=== PATIENT | male | born 1995 | race Caucasian/White ===

== ENCOUNTER 2017-10-28 10:19 | Emergency (ER) | payer OTHER ==
[~2017-10-28] VITALS: Ht 177.8 cm; Wt 113.4 kg
[~2017-10-28 10:19] MED LIST: AMOXICILLIN500 MG PO; ATIVAN1 MG PO; CITALOPRAM HBR40 MG PO; COUGH SYRUP118 ML PO; IBUPROFEN600 MG PO; PREDNISONE20 MG PO; PROVENTIL HFA6.7 GM INH; RISPERIDONE0.25 MG PO; RISPERIDONE0.5 MG PO; TESSALON PERLE100 MG PO
[2017-10-28] MEDS ORDERED: ZITHROMAX250 MG PO (13:14)
[2017-10-28] MEDS ORDERED: VENTOLIN HFA18 GM INH (13:14)
== END 2017-10-28 13:27 | disposition home or self-care (01) ==
LOC: ED 10:19
DX: J18.9 Pneumonia, unspecified organism (principal); F41.0 Panic disorder [episodic paroxysmal anxiety]; F32.9 Major depressive disorder, single episode, unspecified; Z79.899 Other long term (current) drug therapy
CPT/HCPCS: 71046; 80053; 83605; 85025; 94640; 99283; J7512

== ENCOUNTER 2020-09-04 23:41 | Emergency (ER) | payer OTHER ==
[~2020-09-04] VITALS: Ht 177.8 cm; Wt 146.8 kg
[~2020-09-04 23:41] MED LIST changes: +LORAZEPAM1 MG PO; +VENTOLIN HFA18 GM INH; +ZITHROMAX250 MG PO
--- OUTSIDE RECORDS SUMMARY | 2020-09-04 23:44 | XMS ---
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 Guidelines Source: [employer] [facility] [place] Guidelines Date: 02/23/2020 Care Coordination: Member is currently enrolled in Mental Health Services through [employer]. If services are needed through [employer] please call: Ifrah [phone] [place]; [phone] Crisis [phone] Care History Medical/Surgical 01/17/2019 [facility] CASE MANAGEMENT REFERRAL MADE- PATIENT HAS [facility] AND NO PCP. E.D. VISIT COUNT (12 MO.) 1 [facility] TOTAL 1 NOTE: Visits indicate total known visits. ED/UCC VISIT TRACKING (12 MO.) 09/04/2020 23:42 [facility] [place] TYPE: Emergency COMPLAINT: - CHEST STOMACH PAIN INPATIENT VISIT TRACKING (12 MO.) No inpatient visits to display in this time frame [email or web address]
[2020-09-05] MEDS ORDERED: PROTONIX40 MG PO (01:07)
--- NOTE | 2020-09-05 23:58 | EKG ---
[facility] [address] [facility] [place] [address] Signed Normal sinus rhythm Normal ECG No previous ECGs available Confirmed by LYNDA CARLTON MD ([id number]) on 09/05/2020 11:58:44 PM Electronically Signed By: LYNDA CARLTON MD 09/05/20 2358 PATIENT NAME: SHAGUFTA SAENZ Electrocardiogram DATE OF : [birth year] PHYSICIAN: LYNDA CARLTON MD REPORT #: [id number] REPORT IS CONFIDENTIAL AND NOT TO BE RELEASED WITHOUT AUTHORIZATION
== END 2020-09-05 01:12 | disposition home or self-care (01) ==
LOC: ED 23:41
DX: R10.12 Left upper quadrant pain (principal); R10.13 Epigastric pain; F32.9 Major depressive disorder, single episode, unspecified; Z79.899 Other long term (current) drug therapy
CPT/HCPCS: 80053; 81001; 83690; 85025; 93005; 93010; 99284-25

== ENCOUNTER 2021-12-11 13:06 | Emergency (ER) | payer OTHER ==
[~2021-12-11] VITALS: Ht 177.8 cm; Wt 138.0 kg
[~2021-12-11 13:06] MED LIST changes: +PROTONIX40 MG PO
--- OUTSIDE RECORDS SUMMARY | 2021-12-11 13:10 | XMS ---
PreManage Notification: SHAGUFTA SAENZ Security Gemologist Events No recent Security Events currently on file CRITERIA MET - PDMP - Group Notification CARE PROVIDERS SILAS RAMOS Physician Counter Supervisor 09/06/2020-Current PHONE: [phone] Care Guidelines exist for the following facilities: [facility] ( 02/23/2020 ) Care History Medical/Surgical 01/17/2019 [facility] EOIPA CASE MANAGEMENT REFERRAL MADE- PATIENT HAS E[facility] AND NO PCP. E.D. VISIT COUNT (12 MO.) [address] [place] [address] TOTAL 1 NOTE: Visits indicate total known visits. ED/UCC VISIT TRACKING (12 MO.) 12/11/2021 13:07 [facility] [place] TYPE: Emergency COMPLAINT: - MEDICAL CLEARANCE INPATIENT VISIT TRACKING (12 MO.) No inpatient visits to display in this time frame [id number]
== END 2021-12-11 21:00 | disposition home or self-care (01) ==
LOC: ED 13:06
DX: R45.851 Suicidal ideations (principal); F41.9 Anxiety disorder, unspecified; Z79.899 Other long term (current) drug therapy; F32.A Depression, unspecified
CPT/HCPCS: 36415; 80053; 81001; 84443; 85025; 99285; G0480

== ENCOUNTER 2021-12-18 22:01 | Emergency (ER) | payer OTHER ==
[~2021-12-18] VITALS: Ht 177.8 cm; Wt 142.9 kg
--- OUTSIDE RECORDS SUMMARY | 2021-12-18 22:02 | XMS ---
PreManage Notification: SHAGUFTA SAENZ Security Public Interviewer Events No recent Security Events currently on file CRITERIA MET - [facility] - 2 Visits in 30 Days - PDMP - Group Notification CARE PROVIDERS SILAS RAMOS Physician Phy Therapist 09/06/2020-Current PHONE: [phone] Care Guidelines exist for the following facilities: [facility] ( 02/23/2020 ) Care History Medical/Surgical 01/17/2019 [facility] EOIPA CASE MANAGEMENT REFERRAL MADE- PATIENT HAS [facility] AND NO PCP. E.D. VISIT COUNT (12 MO.) 2 [facility] TOTAL 2 NOTE: Visits indicate total known visits. ED/UCC VISIT TRACKING (12 MO.) 12/18/2021 22:01 [facility] [place] TYPE: Emergency COMPLAINT: - RECTAL BLEEDING 12/11/2021 13:07 [facility] [place] TYPE: Emergency COMPLAINT: - MEDICAL CLEARANCE DIAGNOSES: - Other usp (current) drug therapy - Anxiety disorder, unspecified - Suicidal ideations - DEPRESSION, UNSPECIFIED INPATIENT VISIT TRACKING (12 MO.) No inpatient visits to display in this time frame [email or web address]
== END 2021-12-18 23:38 | disposition home or self-care (01) ==
LOC: ED 22:01
DX: K62.5 Hemorrhage of anus and rectum (principal); R10.13 Epigastric pain; Z79.899 Other long term (current) drug therapy
CPT/HCPCS: 36415; 80053; 83690; 85025; 96374; 96375; 99284-25; J1170; J2405; J7030

== ENCOUNTER 2022-06-07 11:03 | Emergency (ER) | payer OTHER ==
[~2022-06-07] VITALS: Ht 177.8 cm; Wt 121.2 kg
--- NOTE | ~2022-06-07 | EKG ---
[facility] [address] [facility] [place], [place] [address] Draft EK completed, results pending confirmation PATIENT NAME: LETTYSHAGUFTA SANCHEZ Electrocardiogram DATE OF : [birth year] PHYSICIAN: PRELIMINARY REPORT #: [id number] REPORT IS CONFIDENTIAL AND NOT TO BE RELEASED WITHOUT AUTHORIZATION
[~2022-06-07 11:03] MED LIST changes: +OSTERA TABLET1 EACH PO; +PROTONIX40 M1 PO
--- OUTSIDE RECORDS SUMMARY | 2022-06-07 11:05 | XMS ---
PreManage Notification: SHAGUFTA SAENZ Security Director Case Management Events No recent Security Events currently on file CRITERIA MET - Group Notification - PDMP CARE PROVIDERS SILAS RAMOS Physician Wheel Fitter 09/06/2020-Current PHONE: [phone] Care Guidelines exist for the following facilities: [facility] ( 02/23/2020 ) Care History Medical/Surgical 01/17/2019 [facility] EOIPA CASE MANAGEMENT REFERRAL MADE- PATIENT HAS E[facility] AND NO PCP. E.D. VISIT COUNT (12 MO.) 3 [facility] TOTAL 3 NOTE: Visits indicate total known visits. 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
[2022-06-07] MEDS ORDERED: VITAMIN D350 MCG PO (11:45)
== END 2022-06-07 12:39 | disposition home or self-care (01) ==
LOC: ED 11:03
DX: R55 Syncope and collapse (principal)
CPT/HCPCS: 93005; 93010; 99284-25

== ENCOUNTER 2022-06-14 06:09 | Day surgery (SDC) | payer OTHER ==
[~2022-06-14] VITALS: Ht 177.8 cm; Wt 121.4 kg
[~2022-06-14 06:09] MED LIST changes: +VITAMIN D350 MCG PO; +ZITHROMAX250 MG; +ZOLOFT25 MG PO
--- NOTE | 2022-06-14 09:21 | OR ---
[facility] [address] [place], [place] [address] Signed DATE OF OPERATION: 06/14/2022 SURGEON: Kateryna Bowen MD PREOPERATIVE DIAGNOSES: 1. Epigastric abdominal pain. 2. Acid reflux. 3. Chronic alternating constipation and diarrhea. 4. Chronic intermittent bloody stool. POSTOPERATIVE DIAGNOSES: 1. Minimal diffuse gastritis. 2. Minimal internal hemorrhoids. PROCEDURES: 1. EGD with CLOtest and biopsies of the duodenum, pyloric bulb and antrum. 2. Colonoscopy with random cold biopsies of the colon and rectum. ESTIMATED BLOOD LOSS: None. INDICATIONS: Natalio is a 27-year-old obese gentleman with rather significant obsessive-compulsive disorder. He was unable to finish high school. He had been living with his mother. I had helped his mother with her inflammatory breast cancer. Unfortunately, she has . He has remained here in [place] in the apartment by himself. He does have family over in the [place] area. He does not drive. He has been working along with his primary care provider. He has been having trouble with epigastric abdominal pain and acid reflux. He said the Protonix has helped. He also mentions alternating constipation and diarrhea over the years. He said in the last couple of years he has had several episodes where there has been blood associated with his stool. He finally went to the emergency room in December of 2021 for blood in the stool. Consequently, he has been asked to see me for both upper and lower endoscopy. He is not aware of any colon cancer or colon polyps in the family. There was no inflammatory bowel disease in his family. He did recall a urethral dilation when he awoke and was quite animated. He may have had a paradoxical reaction to the medication. In addition, he has a very full heavy round face, neck, chest and abdomen. He also has a full black. He has a very large tongue. He did require monitored anesthesia care. That proved to be a martínez decision as he took a large amount of propofol and he required almost constant airway management. In the office, I gave him pamphlets on both upper and lower endoscopy. We Electronically Signed By: KATERYNA BOWEN MD 06/14/22 0921 PATIENT NAME: NATALIO SAENZ OPERATIVE REPORT DATE OF : [birth year] REPORT #: [id number] PHYSICIAN: KATERYNA BOWEN MD PCP: TEMITOPE CARLSON PA-C REPORT IS CONFIDENTIAL AND NOT TO BE RELEASED WITHOUT AUTHORIZATION [facility] [address] [place], [place] [address] Signed had reviewed the nature of the two tests. There is risk including, but not limited to gas bloating, crampy abdominal pain, bleeding, perforation requiring surgery, and missed diagnosis. He had expressed understanding and wished to proceed. PROCEDURE NOTE: Natalio was taken into our endoscopy suite and placed in the supine semi-recumbent position. A bite block was utilized for the case. He was given monitored anesthesia care to include propofol per our nurse community outreach director. The adult gastroscope was introduced and advanced out into the 2nd portion of the duodenum without difficulty. We went ahead and took a random biopsy of the duodenum and pyloric channel due to his history of diarrhea. He appeared to have just a little bit of irritation in the pyloric channel and very mild diffuse inflammation in the stomach. I suspect that is better with his Protonix. We took an additional biopsy out of the antrum for CLOtest. There were no ulcers. Upon retroflexion of the scope, there was no evidence of a hiatal hernia. The scope was withdrawn up through the area of the GE junction, which was compliant without stricture. There was no gastric or esophageal varices. His Z-line is more or less intact. No Hunt's mucosa. No distal esophagitis. The middle and upper esophagus were unremarkable. After this, the gas was suctioned out and the gastroscope removed. Natalio tolerated his procedure quite well. Natalio was then rotated into the left lateral decubitus position. He was maintained on propofol per our nurse community outreach director. A digital rectal exam was performed. This was unremarkable. He had good sphincter tone. No obvious external hemorrhoids. No masses. The adult colonoscope was introduced and advanced all the way around into the cecum under direct visualization of the camera without difficulty. He had a couple areas of particulate liquid stool that I could not quite suction out completely. We could see the appendiceal orifice and the ileocecal valve. We were unable to turn the scope into the terminal ileum. We took random biopsies throughout the colon and rectum for pathologic review. We used cold biopsy forceps. There was no diverticulosis. No polyps. The scope had been retroflexed in the rectum. He does have minimal internal hemorrhoid columns. He has one hemorrhoid column that I think is the source of his intermittent rectal bleeding. After this, the gas was suctioned out and the colonoscope removed. Natalio tolerated the procedure quite well. RECOMMENDATIONS: I will see Natalio back in my office in 7 to 14 days to review his results. Kateryna Bowen MD Electronically Signed By: KATERYNA BOWEN MD 06/14/22 0921 PATIENT NAME: NATALIO SAENZ OPERATIVE REPORT DATE OF : [birth year] REPORT #: [id number] PHYSICIAN: KATERYNA BOWEN MD PCP: TEMITOPE CARLSON PA-C REPORT IS CONFIDENTIAL AND NOT TO BE RELEASED WITHOUT AUTHORIZATION [address] [place], [place] [address] Signed ALB/MODL /[id number] cc: MD Temitope Romano PA-C Copies: KATERYNA BOWEN MD ~ Electronically Signed By: KATERYNA BOWEN MD 06/14/22 0921 PATIENT NAME: NATALIO SAENZ OPERATIVE REPORT DATE OF : [birth year] REPORT #: [id number] PHYSICIAN: KATERYNA BOWEN MD PCP: TEMITOPE CARLSON PA-C REPORT IS CONFIDENTIAL AND NOT TO BE RELEASED WITHOUT AUTHORIZATION
--- NOTE | 2022-06-16 17:10 | PATH ---
[facility] [address] [place], [place] [address] Signed SPECIMEN(S): A DUODENAL BIOPSY SPECIMEN(S): B DUODENAL BULB BIOPSY SPECIMEN(S): C ANTRUM/PYLORUS BIOPSY SPECIMEN(S): D DESCENDING/LEFT COLON BIOPSY SPECIMEN(S): E TRANSVERSE COLON BIOPSY SPECIMEN(S): F ASCENDING/RIGHT COLON BIOPSY SPECIMEN(S): G SIGMOID COLON BIOPSY SPECIMEN(S): H RECTAL BIOPSY SPECIMEN SOURCE: A. DUODENAL BIOPSY B. DUODENAL BULB BIOPSY C. ANTRUM/PYLORUS BIOPSY D. DESCENDING/LEFT COLON BIOPSY E. TRANSVERSE COLON BIOPSY F. ASCENDING/RIGHT COLON BIOPSY G. SIGMOID COLON BIOPSY H. RECTAL BIOPSY CLINICAL HISTORY: Blood in stool, constipation, diarrhea, acid reflux, epigastric pain. Postop: Mild gastritis, internal hemorrhoids. FINAL PATHOLOGIC DIAGNOSIS: A. Duodenal biopsy: - Benign duodenal mucosa, negative for specific diagnostic abnormality. B. Duodenal bulb biopsy: - Benign duodenal mucosa, negative for specific diagnostic abnormality. C. Antrum / pylorus biopsy: - Benign gastric-type mucosa with focal slight chronic inflammation. - Negative for atypical features. - Negative for evidence of Helicobacter organisms on routine HE stained sections. D. Descending / left colon biopsy: - Benign colonic mucosa, negative for pathologic inflammation. E. Transverse colon biopsy: - Benign colonic mucosa, negative for specific diagnostic abnormality. F. Ascending / right colon biopsy: - Benign colonic mucosa, negative for specific diagnostic abnormality. G. Sigmoid colon biopsy: - Benign colonic mucosa, negative for pathologic inflammation. PATIENT NAME: NATALIO VALERO PATHOLOGY DATE OF : [birth year] REPORT #: [id number] PHYSICIAN: CHRIS HOLLAND PCP: JOANA CARLSON PA-C REPORT IS CONFIDENTIAL AND NOT TO BE RELEASED WITHOUT AUTHORIZATION [facility] [address] [place], [place] [address] Signed H. Rectal biopsy: - Benign colonic mucosa, negative for pathologic inflammation. JVR:[facility]:C2NR MICROSCOPIC EXAMINATION: Histologic sections of all submitted blocks are examined by light microscopy. These findings, together with the gross examination, support the pathologic diagnosis. GROSS DESCRIPTION: Eight specimens are received in eight containers, labeled "Natalio Valero." A. The specimen, labeled "Natalio Valero, #1," and designated on the requisition "duodenum biopsy," is received in formalin and consists of one barriga soft tissue fragment that measures 0.3 cm in greatest dimension. The specimen is entirely submitted in cassette (A1). B. The specimen, labeled "Natalio Valero, #2," and designated on the requisition "duodenal bulb biopsy," is received in formalin and consists of one barriga soft tissue fragment that measures 0.4 cm in greatest dimension. The specimen is entirely submitted in cassette (B1). C. The specimen, labeled "Natalio Valero, #3," and designated on the requisition "antrum/pylorus biopsy," is received in formalin and consists of one barriga soft tissue fragment that measures 0.3 cm in greatest dimension. The specimen is entirely submitted in cassette (C1). D. The specimen, labeled "Natalio Valero, #4," and designated on the requisition "descending/left colon biopsy," is received in formalin and consists of one barriga soft tissue fragment that measures 0.3 cm in greatest dimension. The specimen is entirely submitted in cassette (D1). E. The specimen, labeled "Natalio Valero, #5, per the requisition transverse colon biopsy," is received in formalin and consists of one barriga soft tissue fragment that measures 0.4 cm in greatest dimension. The specimen is entirely submitted in cassette (E1). F. The specimen, labeled "Natalio Valero, #6," and designated on the requisition "ascending/right colon biopsy," is received in formalin and consists of two barriga soft tissue fragment(s) that measure 0.3 and 0.5 cm in greatest dimension. The specimen is entirely submitted in cassette (F1). G. The specimen, labeled "Natalio Valero, #7," and designated on the requisition "sigmoid colon biopsy," is received in formalin and consists of one barriga soft tissue fragment that measures 0.4 cm in greatest dimension. The specimen is entirely submitted in cassette (G1). PATIENT NAME: NATALIO VALERO PATHOLOGY DATE OF : [birth year] REPORT #: [id number] PHYSICIAN: CHRIS HOLLAND PCP: JOANA CARLSON PA-C REPORT IS CONFIDENTIAL AND NOT TO BE RELEASED WITHOUT AUTHORIZATION [address] [address] Signed H. The specimen, labeled "Natalio Valero, #8," and designated on the requisition "rectal biopsy," is received in formalin and consists of one barriga soft tissue fragment that measures 0.4 cm in greatest dimension. The specimen is entirely submitted in cassette (A1). FB (under the direct supervision of a pathologist) The Gross Description was prepared using a voice recognition system. The report was reviewed for accuracy; however, sound-alike word errors, addition and/or deletions may occur. If there is any question about this report, please contact Client Services. PERFORMING LABORATORY: The technical component was performed by [facility], [address] [place] [id number] (CLIA# [id number]). Professional interpretation was performed by [facility], [address] [place] [id number] (CLIA#: [id number]). Diagnostician: Amos Tamayo MD Pathologist Electronically Signed 06/16/2022 Copies: ~ PATIENT NAME: NATALIO VALERO PATHOLOGY DATE OF : [birth year] REPORT #: [id number] PHYSICIAN: [employer] AMALIA PCP: JOANA CARLSON PA-C REPORT IS CONFIDENTIAL AND NOT TO BE RELEASED WITHOUT AUTHORIZATION
== END 2022-06-14 08:35 | disposition home or self-care (01) ==
LOC: DS 06:09
PROVIDERS: ATTEND Colon & Rectal Surgery
PROC: 0DB68ZX Excision of Stomach, Via Natural or Artificial Opening Endoscopic, Diagnostic (ICD-10-PCS; 2022-06-14)
PROC: 0DBK8ZX Excision of Ascending Colon, Via Natural or Artificial Opening Endoscopic, Diagnostic (ICD-10-PCS; 2022-06-14)
PROC: 0DBL8ZX Excision of Transverse Colon, Via Natural or Artificial Opening Endoscopic, Diagnostic (ICD-10-PCS; 2022-06-14)
PROC: 0DBN8ZX Excision of Sigmoid Colon, Via Natural or Artificial Opening Endoscopic, Diagnostic (ICD-10-PCS; 2022-06-14)
PROC: 0DBP8ZX Excision of Rectum, Via Natural or Artificial Opening Endoscopic, Diagnostic (ICD-10-PCS; 2022-06-14)
PROC: 0DBM8ZX Excision of Descending Colon, Via Natural or Artificial Opening Endoscopic, Diagnostic (ICD-10-PCS; 2022-06-14)
PROC: 0DB98ZX Excision of Duodenum, Via Natural or Artificial Opening Endoscopic, Diagnostic (ICD-10-PCS; principal; 2022-06-14 07:30)
PROC: 0DB78ZX Excision of Stomach, Pylorus, Via Natural or Artificial Opening Endoscopic, Diagnostic (ICD-10-PCS; 2022-06-14 07:30)
DX: K29.50 Unspecified chronic gastritis without bleeding (principal); K21.9 Gastro-esophageal reflux disease without esophagitis; K59.09 Other constipation; K52.9 Noninfective gastroenteritis and colitis, unspecified; K64.8 Other hemorrhoids; K62.5 Hemorrhage of anus and rectum; E66.9 Obesity, unspecified; Z68.37 Body mass index [BMI] 37.0-37.9, adult; F42.9 Obsessive-compulsive disorder, unspecified
CPT/HCPCS: 00731; 36415; 87077; J2704; J7121

== ENCOUNTER 2022-07-02 21:09 | Emergency (ER) | payer OTHER ==
[~2022-07-02] VITALS: Ht 177.8 cm; Wt 121.2 kg
--- OUTSIDE RECORDS SUMMARY | 2022-07-02 21:12 | XMS ---
PreManage Notification: SHAGUFTA SAENZ Security Peel Oven Tender Events No recent Security Events currently on file CRITERIA MET - Group Notification - PDMP - [facility] - 2 Visits in 30 Days CARE PROVIDERS SILAS RAMOS Physician Four H Agent 09/06/2020-Current PHONE: [phone] Care Guidelines exist for the following facilities: [facility] ( 02/23/2020 ) Care History Medical/Surgical 01/17/2019 [facility] CASE MANAGEMENT REFERRAL MADE- PATIENT HAS [facility] AND NO PCP. E.D. VISIT COUNT (12 MO[address] 4 [facility] TOTAL 4 NOTE: Visits indicate total known visits. ED/UCC VISIT TRACKING (12 MO.) 07/02/2022 21:10 [facility] [place] TYPE: Emergency COMPLAINT: - SUICIDAL THOUGHTS 06/07/2022 11:03 [facility] TYPE: Emergency COMPLAINT: - FAINT DIAGNOSES: - Syncope and collapse 12/18/2021 22:01 [facility] TYPE: Emergency COMPLAINT: - RECTAL BLEEDING DIAGNOSES: - Epigastric pain - Hemorrhage of anus and rectum - Other [facility] (current) drug therapy 12/11/2021 13:07 [facility] [place] TYPE: Emergency COMPLAINT: - MEDICAL CLEARANCE DIAGNOSES: - Suicidal ideations - Anxiety disorder, unspecified - DEPRESSION, UNSPECIFIED - Depression, unspecified - Other [facility] (current) drug therapy INPATIENT VISIT TRACKING (12 MO.) No inpatient visits to display in this time frame [id number]
[2022-07-02] MEDS ORDERED: HYDROXYZINE HCL25 MG PO (22:29)
== END 2022-07-02 23:21 | disposition home or self-care (01) ==
LOC: ED 21:09
DX: F41.9 Anxiety disorder, unspecified (principal); Z79.899 Other long term (current) drug therapy
CPT/HCPCS: 80053; 81001; 85025; 99283; G0480

== ENCOUNTER 2022-09-21 10:34 | Emergency (ER) | payer OTHER ==
[~2022-09-21] VITALS: Ht 177.8 cm; Wt 121.2 kg
[~2022-09-21 10:34] MED LIST changes: +HYDROXYZINE HCL25 MG PO
--- OUTSIDE RECORDS SUMMARY | 2022-09-21 10:36 | XMS ---
PreManage Notification: SHAGUFTA SAENZ Security Sponge Fisherman Events No recent Security Events currently on file CRITERIA MET - Group Notification - PDMP CARE PROVIDERS SILAS RAMOS Physician Nuclear Fuels Reclamation Engineer 09/06/2020-Current PHONE: [phone] Care Guidelines exist for the following facilities: [facility] ( 02/23/2020 ) Care History Medical/Surgical 01/17/2019 [facility] EOIPA CASE MANAGEMENT REFERRAL MADE- PATIENT HAS EOCCO AND NO PCP. E.D. VISIT COUNT (12 MO.) [address] [place] [address] TOTAL 5 NOTE: Visits indicate total known visits. ED/UCC VISIT TRACKING (12 MO.) 09/21/2022 10:35 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
[2022-09-21] MEDS ORDERED: PANTOPRAZOLE SO40 MG PO (15:29)
== END 2022-09-22 14:23 | disposition short-term general hospital (02) ==
LOC: ED 10:34
DX: F42.9 Obsessive-compulsive disorder, unspecified (principal); Z20.822 Contact with and (suspected) exposure to COVID-19
CPT/HCPCS: 36415; 80053; 84443; 85025; 87502; 99283; C9803; G0480; U0003

== ENCOUNTER 2022-10-10 02:16 | Emergency (ER) | payer OTHER ==
[~2022-10-10] VITALS: Ht 177.8 cm; Wt 121.2 kg
[~2022-10-10 02:16] MED LIST changes: +PANTOPRAZOLE SO40 MG PO
--- OUTSIDE RECORDS SUMMARY | 2022-10-10 02:18 | XMS ---
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 E.D. VISIT COUNT (12 MO.) 6 [facility] TOTAL 6 NOTE: Visits indicate total known visits. ED/UCC VISIT TRACKING (12 MO.) 10/10/2022 02:[address] [facility] TYPE: Emergency COMPLAINT: - PAIN, ANXIETY 09/21/2022 10:[address] 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 06/07/2022 11:03 [facility] [place] TYPE: Emergency COMPLAINT: - FAINT DIAGNOSES: - Syncope and collapse 12/18/2021 22:01 [facility] [place] TYPE: Emergency COMPLAINT: - RECTAL BLEEDING DIAGNOSES: - Epigastric pain - Hemorrhage of anus and rectum - Other 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
== END 2022-10-10 11:01 | disposition home or self-care (01) ==
LOC: ED 02:16
DX: F41.9 Anxiety disorder, unspecified (principal); F42.9 Obsessive-compulsive disorder, unspecified
CPT/HCPCS: 36415; 80053; 81003; 84443; 85025; 99283; G0480; U0003

== ENCOUNTER 2022-10-25 23:55 | Emergency (ER) | payer OTHER ==
[~2022-10-25] VITALS: Ht 177.8 cm; Wt 98.1 kg
--- OUTSIDE RECORDS SUMMARY | 2022-10-25 23:56 | XMS ---
PreManage Notification: SHAGUFTA SAENZ Security Sheet Catcher Events No recent Security Events currently on file CRITERIA MET - [facility] - 2 Visits in 30 Days - 6 ED Visits in 6 Months - Group Notification CARE PROVIDERS SILAS RAMOS Physician 09/06/2020-Current PHONE: [phone] Care Guidelines exist for the following facilities: [facility] ( 02/23/2020 ) Care History Medical/Surgical 01/17/2019 [facility] CASE MANAGEMENT REFERRAL MADE- PATIENT HAS EOCCO AND NO PCP. E.D. VISIT COUNT (12 MO.) [facility] Micki [address] TOTAL 9 NOTE: Visits indicate total known visits. ED/UCC VISIT TRACKING (12 MO.) 10/25/2022 23:[address] [facility] TYPE: Emergency COMPLAINT: - DEPRESSION 10/21/2022 13:16 [facility] TYPE: Emergency COMPLAINT: - suicidal DIAGNOSES: - suicidal - Suicidal ideations - SI 10/20/2022 22:26 [facility] COMPLAINT: - AMS DIAGNOSES: - Chest Pain - Acute upper respiratory infection, unspecified - Cough - AMS - Altered Mental Status 10/10/2022 02:17 [facility] [place] TYPE: Emergency COMPLAINT: - PAIN, ANXIETY DIAGNOSES: - Obsessive-compulsive disorder, unspecified - Anxiety disorder, unspecified 09/21/2022 10:35 [facility] [place] TYPE: Emergency COMPLAINT: - MEDICAL CLEARANCE DIAGNOSES: - Obsessive-compulsive disorder, unspecified - Contact with and (suspected) exposure to COVID-19 07/02/2022 21:10 [facility] [place] TYPE: Emergency COMPLAINT: - SUICIDAL THOUGHTS DIAGNOSES: - Anxiety disorder, unspecified - Other termite renewal inspector (current) drug therapy 06/07/2022 11:03 [facility] [place] TYPE: Emergency COMPLAINT: - FAINT DIAGNOSES: - Syncope and collapse 12/18/2021 22:01 [facility] [place] TYPE: Emergency COMPLAINT: - RECTAL BLEEDING DIAGNOSES: - Epigastric pain - Hemorrhage of anus and rectum - Other correction (current) drug therapy 12/11/2021 13:07 [facility] [place] TYPE: Emergency COMPLAINT: - MEDICAL CLEARANCE DIAGNOSES: - Suicidal ideations - Anxiety disorder, unspecified - DEPRESSION, UNSPECIFIED - Depression, unspecified - Other termite renewal inspector (current) drug 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
== END 2022-10-26 02:30 | disposition home or self-care (01) ==
LOC: ED 23:55
DX: F32.A Depression, unspecified (principal); F45.9 Somatoform disorder, unspecified
CPT/HCPCS: 99283

== ENCOUNTER 2022-10-29 23:39 | Emergency (ER) | payer OTHER ==
[~2022-10-29] VITALS: Ht 177.8 cm; Wt 97.6 kg
--- OUTSIDE RECORDS SUMMARY | 2022-10-29 23:42 | XMS ---
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 E.D. VISIT COUNT (12 MO.) [facility] Micki [address] TOTAL 10 NOTE: Visits indicate total known visits. ED/UCC VISIT TRACKING (12 MO.) 10/29/2022 23:[address] [facility] [place] TYPE: Emergency COMPLAINT: - FOUND DOWN AT HOME 10/25/2022 23:[address] [facility] [place] TYPE: Emergency COMPLAINT: - DEPRESSION DIAGNOSES: - Depression, unspecified - Somatoform disorder, unspecified 10/21/2022 13:16 [facility] TYPE: Emergency COMPLAINT: - suicidal DIAGNOSES: - SI - suicidal - Suicidal ideations 10/20/2022 22:26 [facility] TYPE: Emergency COMPLAINT: - AMS DIAGNOSES: - Altered Mental Status - Chest Pain - Acute upper respiratory infection, unspecified - Cough - AMS 10/10/2022 02:17 [facility] TYPE: Emergency COMPLAINT: - PAIN, ANXIETY DIAGNOSES: - Anxiety disorder, unspecified - Obsessive-compulsive disorder, unspecified 09/21/2022 10:35 [facility] TYPE: Emergency COMPLAINT: - MEDICAL CLEARANCE DIAGNOSES: - Contact with and (suspected) exposure to COVID-19 - Obsessive-compulsive disorder, unspecified 07/02/2022 21:10 [facility] [place] TYPE: Emergency COMPLAINT: - SUICIDAL THOUGHTS DIAGNOSES: - Other long-term (current) drug therapy - Anxiety disorder, unspecified 06/07/2022 11:03 [facility] [place] TYPE: Emergency COMPLAINT: - FAINT DIAGNOSES: - Syncope and collapse 12/18/2021 22:01 [facility] [place] TYPE: Emergency COMPLAINT: - RECTAL BLEEDING DIAGNOSES: - Other long-term (current) drug therapy - Epigastric pain - Hemorrhage of anus and rectum 12/11/2021 13:07 [facility] [place] TYPE: Emergency COMPLAINT: - MEDICAL CLEARANCE DIAGNOSES: - Other long-term (current) drug therapy - Suicidal ideations - Anxiety disorder, unspecified - DEPRESSION, UNSPECIFIED - Depression, unspecified INPATIENT VISIT TRACKING (12 MO.) No inpatient visits to display in this time frame [id number]
[2022-10-29] MEDS ORDERED: PANTOPRAZOLE SO40 MG PO (23:54)
[2022-10-29] MEDS ORDERED: SERTRALINE HCL50 MG PO (23:54)
[2022-10-29] MEDS ORDERED: LORAZEPAM1 MG PO (23:54)
== END 2022-10-30 01:55 | disposition home or self-care (01) ==
LOC: ED 23:39
DX: F45.0 Somatization disorder (principal); F32.A Depression, unspecified; F43.10 Post-traumatic stress disorder, unspecified; Z79.899 Other long term (current) drug therapy
CPT/HCPCS: 36415; 51798; 80053; 82553; 83735; 85025; 99284-25; G0480; J7030

== ENCOUNTER → 2022-11-10 | Emergency (ER) | payer OTHER ==
[~2022-11-10] VITALS: Ht 177.8 cm; Wt 97.6 kg
[~2022-11-10] MED LIST changes: +SERTRALINE HCL50 MG PO
--- OUTSIDE RECORDS SUMMARY | 2022-11-10 13:43 | XMS ---
PreManage Notification: SHAGUFTA SAENZ Security Ultrasound Tech Events No recent Security Events currently on file CRITERIA MET - [facility] - 2 Visits in 30 Days - 6 ED Visits in 6 Months - Group Notification CARE PROVIDERS SILAS RAMOS Physician 09/06/2020-Current PHONE: [phone] Care Guidelines exist for the following facilities: [facility] ( 02/23/2020 ) Care History Medical/Surgical 01/17/2019 [facility] EOIPA CASE MANAGEMENT REFERRAL MADE- PATIENT HAS EOCCO AND NO PCP. E.D. VISIT COUNT (12 MO.) [facility] TOTAL 11 NOTE: Visits indicate total known visits. ED/UCC VISIT TRACKING (12 MO.) 11/10/2022 13:39 [facility] [place] TYPE: Emergency COMPLAINT: - WEAKNESS 10/29/2022 23:40 [facility] [place] TYPE: Emergency COMPLAINT: - FOUND DOWN AT HOME DIAGNOSES: - Somatization disorder - Post-traumatic stress disorder, unspecified - Other [place] [facility] (current[facility] drug therapy - Anesthesia of skin - Depression, unspecified 10/25/2022 23:55 [facility] [place] TYPE: Emergency COMPLAINT: - DEPRESSION DIAGNOSES: - Depression, unspecified - Somatoform disorder, unspecified 10/21/2022 13:16 [facility] TYPE: Emergency COMPLAINT: - suicidal DIAGNOSES: - Suicidal ideations - SI - suicidal 10/20/2022 22:26 [facility] TYPE: Emergency COMPLAINT: - AMS DIAGNOSES: - Cough - AMS - Altered Mental Status - Chest Pain - Acute upper respiratory infection, unspecified 10/10/2022 02:17 [facility] [place] TYPE: Emergency COMPLAINT: - PAIN, ANXIETY DIAGNOSES: - Anxiety disorder, unspecified - Obsessive-compulsive disorder, unspecified 09/21/2022 10:35 [facility] [place] TYPE: Emergency COMPLAINT: - MEDICAL CLEARANCE DIAGNOSES: - Contact with and (suspected) exposure to COVID-19 - Obsessive-compulsive disorder, unspecified 07/02/2022 21:10 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) drug therapy - Anxiety disorder, unspecified 06/07/2022 11:03 [facility] [place] TYPE: Emergency COMPLAINT: - FAINT DIAGNOSES: - Syncope and collapse 12/18/2021 22:01 [facility] [place] TYPE: Emergency COMPLAINT: - RECTAL BLEEDING DIAGNOSES: - Hemorrhage of anus and rectum - Other terminal operator (current) drug therapy - Epigastric pain 12/11/2021 13:07 [facility] [place] TYPE: Emergency COMPLAINT: - MEDICAL CLEARANCE DIAGNOSES: - DEPRESSION, UNSPECIFIED - Depression, unspecified - Other [place] [facility] [place] (current) drug therapy - Suicidal ideations - Anxiety disorder, unspecified INPATIENT VISIT TRACKING (12 MO.) No inpatient visits to display in this time frame [email or web address]
== END ==
LOC: ED 13:39
DX: R29.818 Other symptoms and signs involving the nervous system (principal); Z79.899 Other long term (current) drug therapy
CPT/HCPCS: 36415; 80053; 81001; 82553; 84443; 85025; 87088; 99285; G0480; J7030

== ENCOUNTER 2022-11-17 14:22 | Emergency (ER) | payer OTHER ==
[~2022-11-17] VITALS: Ht 177.8 cm; Wt 97.6 kg
--- OUTSIDE RECORDS SUMMARY | 2022-11-17 14:23 | XMS ---
PreManage Notification: SHAGUFTA SAENZ Security Index Editor Events No recent Security Events currently on file CRITERIA MET - Group Notification - 6 ED Visits in 6 Months - [facility] - 3 Facilities in 90 Days - [facility] - 2 Visits in 30 Days CARE PROVIDERS SILAS RAMOS Physician 09/06/2020-Current PHONE: [phone] Care Guidelines exist for the following facilities: [facility] ( 02/23/2020 ) Care History Medical/Surgical 01/17/2019 [facility] EOIPA CASE MANAGEMENT REFERRAL MADE- PATIENT HAS EOCCO AND NO PCP. E.D. VISIT COUNT (12 MO.) [address] [place] [address] [facility] [place] TOTAL 14 NOTE: Visits indicate total known visits. ED/UCC VISIT TRACKING (12 MO.) 11/17/2022 14:[address] 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 [place] TYPE: Emergency COMPLAINT: - DEPRESSION DIAGNOSES: - Depression, unspecified - Somatoform disorder, unspecified 10/21/2022 13:16 [facility] COMPLAINT: - suicidal DIAGNOSES: - SI - suicidal - Suicidal ideations 10/20/2022 22:26 [facility] COMPLAINT: - AMS DIAGNOSES: - Altered Mental Status - Chest Pain - Acute upper respiratory infection, unspecified - Cough - AMS 10/10/2022 02:17 [facility] TYPE: Emergency COMPLAINT: - PAIN, ANXIETY DIAGNOSES: - Contact with and (suspected) exposure to COVID-19 - Anxiety disorder, unspecified - Obsessive-compulsive disorder, unspecified 09/21/2022 10:35 [facility] [place] TYPE: Emergency COMPLAINT: - MEDICAL CLEARANCE DIAGNOSES: - Contact with and (suspected) exposure to COVID-19 - Obsessive-compulsive disorder, unspecified 07/02/2022 21:[address] 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 [place] TYPE: Emergency COMPLAINT: - FAINT DIAGNOSES: - Syncope and collapse 12/18/2021 22:[address] [facility] [place] TYPE: Emergency COMPLAINT: - RECTAL BLEEDING DIAGNOSES: - Other retirement (current) drug therapy - Epigastric pain - Hemorrhage of anus and rectum 12/11/2021 13:07 [facility] [place] TYPE: Emergency COMPLAINT: - MEDICAL CLEARANCE DIAGNOSES: - Other retirement (current) drug therapy - Suicidal ideations - Anxiety disorder, unspecified - DEPRESSION, UNSPECIFIED - Depression, unspecified INPATIENT VISIT TRACKING (12 MO.) No inpatient visits to display in this time frame [id number]
== END 2022-11-17 23:33 | disposition home or self-care (01) ==
LOC: ED 14:22
DX: F45.9 Somatoform disorder, unspecified (principal)
CPT/HCPCS: 36415; 51701; 70450; 80053; 81003; 84443; 85025; 99284-25; G0480

== ENCOUNTER 2023-01-02 19:20 | Emergency (ER) | payer OTHER ==
[~2023-01-02] VITALS: Ht 177.8 cm; Wt 83.7 kg
--- OUTSIDE RECORDS SUMMARY | 2023-01-02 19:22 | XMS ---
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 E.D. VISIT COUNT (12 MO.) 2 [facility] Mandy [place] 1 [facility] 10 MAGDA Kim TOTAL 13 NOTE: Visits indicate total known visits. ED/UCC VISIT TRACKING (12 MO.) 01/02/2023 19:20 [facility] [place] TYPE: Emergency COMPLAINT: - MEDICAL CLEARANCE 11/17/2022 14:22 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 TYPE: Emergency COMPLAINT: - suicidal DIAGNOSES: - Suicidal ideations - SI - suicidal 10/20/2022 22:[address] [facility] TYPE: Emergency COMPLAINT: - AMS DIAGNOSES: - Cough - AMS - Altered Mental Status - Chest Pain - Acute upper respiratory infection, unspecified 10/10/2022 02:17 [facility] [place] TYPE: Emergency COMPLAINT: - PAIN, ANXIETY DIAGNOSES: - Obsessive-compulsive disorder, unspecified - Contact with and (suspected) exposure to COVID-19 - Anxiety disorder, unspecified 09/21/2022 10:35 [facility] [place] TYPE: Emergency COMPLAINT: - MEDICAL CLEARANCE DIAGNOSES: - Contact with and (suspected) exposure to COVID-19 - Obsessive-compulsive disorder, unspecified 07/02/2022 21:10 [facility] [place] TYPE: Emergency COMPLAINT: - SUICIDAL THOUGHTS DIAGNOSES: - Other longterm (current) drug therapy - Anxiety disorder, unspecified 06/07/2022 11:03 [facility] [place] TYPE: Emergency COMPLAINT: - FAINT DIAGNOSES: - Syncope and collapse INPATIENT VISIT TRACKING (12 MO.) No inpatient visits to display in this time frame [id number]
== END 2023-01-03 07:55 ==
LOC: ED 19:20
DX: F43.10 Post-traumatic stress disorder, unspecified (principal); F41.9 Anxiety disorder, unspecified; F42.9 Obsessive-compulsive disorder, unspecified; F44.6 Conversion disorder with sensory symptom or deficit; Z79.899 Other long term (current) drug therapy; Z20.822 Contact with and (suspected) exposure to COVID-19
CPT/HCPCS: 36415; 80053; 81003; 84443; 85025; 87502; 99284; C9803; G0480; U0003